=== PATIENT | female | born 1955 | race Hispanic/Latino ===

== ENCOUNTER → 2019-04-14 | Outpatient (CLI) | payer OTHER | END | disposition home or self-care (01) | LOC: RAH 07:51 | PROVIDERS: ATTEND Family Medicine | DX: Z12.31 Encounter for screening mammogram for malignant neoplasm of breast (principal) | CPT/HCPCS: 77067 ==

== ENCOUNTER → 2020-09-19 | Outpatient (CLI) | payer OTHER | END | disposition home or self-care (01) | LOC: RAH 14:53 | PROVIDERS: ATTEND Emergency Medicine | DX: Z12.31 Encounter for screening mammogram for malignant neoplasm of breast (principal) | CPT/HCPCS: 77067 ==

== ENCOUNTER → 2021-04-23 | Outpatient (CLI) | payer OTHER | END | disposition home or self-care (01) | LOC: OIH 09:53 | PROVIDERS: ATTEND Internal Medicine Cardiovascular Disease | DX: Z13.6 Encounter for screening for cardiovascular disorders (principal) | CPT/HCPCS: 75571 ==

== ENCOUNTER → 2022-10-31 | Outpatient (CLI) | payer OTHER | END | disposition home or self-care (01) | LOC: SHCH 07:48 | PROVIDERS: ATTEND Internal Medicine Cardiovascular Disease | DX: I71.40 Abdominal aortic aneurysm, without rupture, unspecified (principal) | CPT/HCPCS: 93978 ==

== ENCOUNTER → 2023-12-06 | Outpatient (CLI) | payer OTHER | END | disposition home or self-care (01) | LOC: RAH 09:21 | PROVIDERS: ATTEND Physician Assistant Medical | DX: Z12.31 Encounter for screening mammogram for malignant neoplasm of breast (principal) | CPT/HCPCS: 77067 ==

== ENCOUNTER → 2024-12-08 | Outpatient (CLI) | payer OTHER ==
--- NOTE | 2024-12-08 11:13 | HMCIMG ---
SCREENING MAMMOGRAM REASON: Annual Exam COMPARISON: 12/06/2023 TECHNIQUE: CC and MLO views of the bilateral breasts were performed.CAD was performed as well. FINDINGS: Parenchymal density: The breasts are heterogeneously dense, which may obscure small masses. There are no focal mass lesions. There are no pathologic appearing calcifications. There is no evidence of architectural distortion or skin thickening. IMPRESSION: Normal screening mammogram The patient was entered into a reminder system with a target due date for their next mammogram. BI-RADS CATEGORY 1: NEGATIVE Recommend monthly self breast exam as well as annual clinical examination. A negative x-ray should not delay biopsy if a dominant or clinically suspicious mass is present, since 8-10% of cancers are not identified by mammography. Dense breasts particularly, may obscure an underlying neoplasm. Some of these may be detected clinically and therefore, clinical examination is an essential part of breast evaluation.
== END | disposition home or self-care (01) ==
LOC: RAH 09:26
PROVIDERS: ATTEND Physician Assistant Medical
DX: Z12.31 Encounter for screening mammogram for malignant neoplasm of breast (principal); R92.333 Mammographic heterogeneous density, bilateral breasts
CPT/HCPCS: 77067

== ENCOUNTER 2025-03-07 09:44 | Observation (INO) | payer OTHER ==
[~2025-03-07] VITALS: Ht 162.6 cm; Wt 60.3 kg
[2025-03-07 11:10] LABS: BASOPHILS # (AUTO) 0.03 K/uL (0.00-0.20); BASOPHILS % (AUTO) 0.4 % (0.0-5.0); EOSINOPHILS # (AUTO) 0.01 K/uL (0.00-0.70); EOSINOPHILS % (AUTO) 0.1 % (0.0-8.0); IMMATURE GRANULOCYTE ABSOLUTE 0.02 K/uL (0-1); LYMPHOCYTES # (AUTO) 1.6 K/uL (1.0-4.8); LYMPHOCYTES % (AUTO) 19.4 % (21.0-51.0); MEAN CORPUSCULAR HEMOGLOBIN 30.9 pg (27.0-33.0); MEAN CORPUSCULAR HGB CONC 33.3 g/dL (32.0-36.0); MEAN CORPUSCULAR VOLUME 92.7 fL (79-99); MONOCYTES # (AUTO) 0.6 K/uL (0.1-1.0); MONOCYTES % (AUTO) 7.7 % (3.0-13.0); NEUTROPHILS # (AUTO) 5.8 K/uL (1.8-7.7); NEUTROPHILS % (AUTO) 72.2 % (40.0-77.0); PLATELET COUNT (AUTO) 336 K/uL (130-400); RED BLOOD CELL COUNT(AUTO) 4.53 MIL/uL (4.00-5.50); RED CELL DISTRIBUTION WIDTH 12.8 % (11.0-15.5)
[2025-03-07 11:29] LABS: CREATININE 0.7 mg/dL (0.5-1.0); MAGNESIUM 2.1 mg/dL (1.80-2.40); POTASSIUM 3.6 mmol/L (3.5-5.1)
[2025-03-07 11:43] LABS: B-TYPE NATRIURETIC PEPTIDE 17 pg/mL (0-100)
--- NOTE | 2025-03-07 11:52 | HMCIMG ---
PORTABLE CHEST RADIOGRAPH INDICATION: palpitations COMPARISON: None FINDINGS: operations associate leads overlie the field of view. Heart size is normal. Mild calcific plaque is present along the aortic arch sauceda. The pulmonary vascularity and aurelio appear normal. No abnormal pulmonary parenchymal opacity or consolidation identified. No significant pleural effusion noted. No pneumothorax detected. IMPRESSION: No radiographic evidence for any acute cardiopulmonary process.
[2025-03-07] MEDS: 0.9%NACL 1000ML 1,000 ML IV ONE (12:14)
--- NOTE | 2025-03-07 13:44 | HP ---
[facility] HISTORY AND PHYSICAL Date of Service: Mar 07, 2025 Time of Service: 13:35 HISTORY OF PRESENT ILLNESS: [ ] Admission date 03/07/2025 PCP: Horacio Lopez CC: Palpitation This is a 70-year-old female that presents in ED with chief complaints of palpitations. Onset for five days. She reports going out and having some drinks on Wednesday and on Wednesday she developed loose stools and palpitations come and go. She believes she had food poisoning given to other friends had similar symptoms. Diarrhea has a decided. She does have a history of GERD is on Protonix at home. Patient reports seen cuprous chloride helper's Dr. Blount last visit was a year ago. She denies chest pain, shortness a breath, or dizziness or lower extremity edema. She will be admitted for further cardiac workup given to elevated troponin 60 REVIEW OF SYSTEMS A14 point ROS was obtained all relevant positives were documented otherwise ROS negative PAST MEDICAL HISTORY: [ ] GERD, hypertension, hyperlipidemia hypothyroidism PAST SURGICAL HISTORY: [ ] Nasal surgery left wrist surgery PAST SOCIAL HISTORY: [ ] Cocktail drinks 3-5 oz of gin daily basis Illicit drugs marijuana cakes daily FAMILY HISTORY: [ ] Noncontributory Coded Allergies: Penicillins (Unverified Allergy, Unknown, 03/07/25) PHYSICAL EXAM GENERAL APPEARANCE: The patient is awake, alert, and oriented, in no acute cardiopulmonary distress. NEUROLOGICAL: Cranial nerves II-XII grossly intact. Motor is 5/5 in bilateral upper and lower extremities proximal to distal. No sensory deficits. HEENT: Face is symmetric. Pupils are equal and reactive. Extraocular movements are intact. NECK: Supple. No JVD. No thyromegaly. No submental, submandibular, pre- /postauricular, occipital or supraclavicular lymphadenopathy. CHEST: Normal chest expansion. No Telemetry. LUNGS: Absence of any rales, rhonchi or any wheezing. CARDIOVASCULAR: Regular. S1 and S2 normal. No appreciable rubs, murmurs or gallops. ABDOMEN: Soft, nontender, and nondistended. There is no rebound, voluntary guarding, or rigidity. : Deferred. No Clark. EXTREMITIES: Non-edematous and not cyanotic. No clubbing. Good capillary refill. SKIN: No skin breakdown. Vital Sign (Last 24 Hours) 03/07/25 10:50 Temp 99.1 Pulse 65 Resp 20 B/P (MAP) 155/88 Pulse Ox 99 O2 Delivery Room Air* O2 Flow Rate 0 FiO2 21 LABS: Laboratory: Test 03/07/25 11:03 Range/Units White Blood Count 8.0 4.8-10.8 K/uL Red Blood Count 4.53 4.00-5.50 MIL/uL Hemoglobin 14.0 12.0-16.0 g/dL Hematocrit 42.0 36-48 % Mean Corpuscular Volume 92.7 79-99 fL Mean Corpuscular Hemoglobin 30.9 27.0-33.0 pg Mean Corpuscular Hemoglobin Concent 33.3 32.0-36.0 g/dL Red Cell Distribution Width 12.8 11.0-15.5 % Platelet Count 336 130-400 K/uL Mean Platelet Volume 9.4 7.5-10.5 fL Immature Granulocyte % (Auto) 0.2 0-1 % Neutrophils (%) (Auto) 72.2 40.0-77.0 % Lymphocytes (%) (Auto) 19.4 L 21.0-51.0 % Monocytes (%) (Auto) 7.7 3.0-13.0 % Eosinophils (%) (Auto) 0.1 0.0-8.0 % Basophils (%) (Auto) 0.4 0.0-5.0 % Neutrophils # (Auto) 5.8 1.8-7.7 K/uL Lymphocytes # (Auto) 1.6 1.0-4.8 K/uL Monocytes # (Auto) 0.6 0.1-1.0 K/uL Eosinophils # (Auto) 0.01 0.00-0.70 K/uL Basophils # (Auto) 0.03 0.00-0.20 K/uL Absolute Immature Granulocyte (auto 0.02 0-1 K/uL Nucleated Red Blood Cells 0.0 0.0-0.19 % Sodium Level 139 136-145 mmol/L Potassium Level 3.6 3.5-5.1 mmol/L Chloride Level 101 101-111 mmol/L Carbon Dioxide Level 29 21-32 mmol/L Blood Urea Nitrogen 8 7-18 mg/dL Creatinine 0.7 0.5-1.0 mg/dL Glomerular Filtration Rate Calc 94 >90 mL/min Random Glucose 93 70-105 mg/dL Total Calcium 9.8 8.5-10.1 mg/dL Magnesium Level 2.10 1.80-2.40 mg/dL Total Creatine Kinase 186 21-232 U/L Troponin I High Sensitivity 60 *H 4-50 ng/L B-Type Natriuretic Peptide 17 0-100 pg/mL DIAGNOSTICS / RADIOLOGY: [ ] ASSESSMENT: Atypical chest pain with palpitations POA Elevated troponin POA Binge alcohol drinking POA Uncontrolled hypertension POA PLAN: [ ] Admit: Medical-surgical with tele condition: Guarded Status: Full code IVF: Banana bag75 mL/hour Consultants cuprous chloride helper's CINC PROTOCOL: thiamine HCL daily x3 doses, Folic acid 1 mg po dialy fall precaution [id number] mg p.o. daily Lipid panel TSH Test: Echo to evaluate LV function Labs cbc, cmp, mag+ in a.m. Replace electrolytes as needed as per protocol to keep potassium above 4.0 magnesium 2.0. Home medications resumed: statin , asa, Norvasc 2.5 mg po daily, levothyroxin 112 mcg every am PRN: MEDICATIONS Tylenol 650 mg po every 4 hrs for fever zofran 4 mg IV every 6 hrs for n/v Hydralazine 5 mg IV every 4 hrs systolic pressure > 160 bowel regiment: lactulose 20 gm PO BID PRN constipation Counseling provided community resources provided. ETOH use cessation and illicit use Supportive measures: DVT ppx, GI ppx all questions answered time spent: > 35 min Supervising MD: Dr. Nguyen c/d This document was generated in part using voice recognition software, occasional wrong word or sound alike substitutions may have occurred due to the inherent limitations of voice recognition software. Read the chart carefully and r ecognize using context, where the substitutions have occurred. Although every effort was made to edit the content, senior investigator and typing errors may occur ATTESTATION BY PHYSICIAN I have seen and examined the patient. I reviewed the documentation, medical decision making, and treatment plan as noted by the mid-level provider above. I agree with the findings and plan of care. SANTIAGO NGUYEN MD ATTESTATION BY PHYSICIAN I have seen and examined the patient. I reviewed the documentation, medical decision making, and treatment plan as noted by the mid-level provider above. I agree with the findings and plan of care. SANTIAGO NGUYEN MD, ELIZABETH NP Mar 07, 2025 13:44
--- NOTE | 2025-03-07 13:47 | ERN ---
General Chief Complaint: Palpitations Stated Complaint: CLAMY HANDS, ELEVATED HEART RATE Time Seen by MD: 10:03 Time Seen by Midlevel: 10:03 Source: patient History of Present Illness Initial Comments The patient is a 70-year-old female with a past medical history of hypertension, hyperlipidemia, and GERD presenting to the emergency department with multiple complaints. She reports having palpitations and clammy hands for the last couple of days. She states her symptoms started after a night of drinking. Patient is followed by [facility] attendant Dr. Blount Allergies: Coded Allergies: Penicillins (Unverified Allergy, Unknown, 03/07/25) Home Meds Reported Medications Rosuvastatin Calcium (Rosuvastatin Calcium) 10 Mg Tablet, 2 TAB PO HS for 30 Days, #30 TAB 0 Refills 03/07/25 Pantoprazole Sodium (Pantoprazole Sodium) 40 Mg Tablet.dr, 1 TAB PO DAILY for 30 Days, #30 TAB 0 Refills 03/07/25 Aspirin (Aspirin) 81 Mg Tab.chew, 1 TAB PO DAILY for 30 Days, #30 TAB 0 Refills 03/07/25 Levothyroxine Sodium (Levothyroxine) 112 Mcg Capsule, 1 CAP PO DAILY for 30 Days, #30 CAP 0 Refills 03/07/25 Amlodipine Besylate (Amlodipine Besylate) 2.5 Mg Tablet, 1 TAB PO DAILY for 30 Days, #30 TAB 0 Refills 03/07/25 Past Medical History Past Medical History: GERD, High Cholesterol, Hypertension Past Surgical History: Other ROS Dictation CONSTITUTIONAL: Negative except for HPI HEAD/FACE: Negative except for HPI EENT: Negative except for HPI RESPIRATORY: Negative except for HPI GASTROINTESTINAL/ABDOMINAL: Negative except for HPI GENITOURINARY: Negative except for HPI MUSCULOSKELETAL: Negative except for HPI INTEGUMENTARY: Negative except for HPI NEUROLOGICAL/PSYCH: Negative except for HPI HEMATOLOGIC/LYMPHATIC: Negative except for HPI All Systems Negative, Except as noted above. 13 point review of systems assessed and all negative except for above. Physical Exam Physical Exam Dictation Vital Signs reviewed General Appearance: Alert, oriented x 3, no acute distress, well developed, nourished. Head and Face: non-traumatic. Eyes: PERRL, pink conjunctivas, eyelid no trauma, anterior chamber with arcus senilis. Ears: Pinnas intact and no signs of trauma or erythema ear canals clear and no discharge TM no erythema Nose: No discharge, no bleeding. Oropharynx: Mouth normal, tongue pink, pharynx clear,no erythema, tonsils no exudates, no abscesses noted, mucous membrane moist Neck: Supple, non-tender, no thyromegaly, no masses, no JVD, no bruits Breast:Deferred Chest:No tenderness, no crepitus, no paradoxical movement, no retractions Lungs:Clear, well-ventilated, symmetric, no rales, no wheezing, no rhonchi, no stridor, good breath sounds bilaterally Heart: Regular rate, regular rhythm, no murmur, no gallops Vascular: no peripheral edema, Abdomen: Soft, positive bowel sounds, nondistended, no guarding, nontender, no rebound, no masses no hepatomegaly, no splenomegaly, no Roy's sign, no hernias. Rectal: Deferred Genital: Deferred Neurological: Normal speech, motor function intact, sensory function intact Musculoskeletal: Neck nontender, full range of motion, back nontender, full range of motion, Extremities: nontender, full range of motion Skin: Color pink, dry, no turgor, no rash, no lacerations, no abrasions, no contusions. Lymphatic: Deferred Results Laboratory and Microbiology Lab and Micro Result Laboratory Tests Test 03/07/25 11:03 White Blood Count 8.0 K/uL (4.8-10.8) Red Blood Count 4.53 MIL/uL (4.00-5.50) Hemoglobin 14.0 g/dL (12.0-16.0) Hematocrit 42.0 % (36-48) Mean Corpuscular Volume 92.7 fL (79-99) Mean Corpuscular Hemoglobin 30.9 pg (27.0-33.0) Mean Corpuscular Hemoglobin Concent 33.3 g/dL (32.0-36.0) Red Cell Distribution Width 12.8 % (11.0-15.5) Platelet Count 336 K/uL (130-400) Mean Platelet Volume 9.4 fL (7.5-10.5) Immature Granulocyte % (Auto) 0.2 % (0-1) Neutrophils (%) (Auto) 72.2 % (40.0-77.0) Lymphocytes (%) (Auto) 19.4 % (21.0-51.0) L Monocytes (%) (Auto) 7.7 % (3.0-13.0) Eosinophils (%) (Auto) 0.1 % (0.0-8.0) Basophils (%) (Auto) 0.4 % (0.0-5.0) Neutrophils # (Auto) 5.8 K/uL (1.8-7.7) Lymphocytes # (Auto) 1.6 K/uL (1.0-4.8) Monocytes # (Auto) 0.6 K/uL (0.1-1.0) Eosinophils # (Auto) 0.01 K/uL (0.00-0.70) Basophils # (Auto) 0.03 K/uL (0.00-0.20) Absolute Immature Granulocyte (auto 0.02 K/uL (0-1) Nucleated Red Blood Cells 0.0 % (0.0-0.19) Sodium Level 139 mmol/L (136-145) Potassium Level 3.6 mmol/L (3.5-5.1) Chloride Level 101 mmol/L (101-111) Carbon Dioxide Level 29 mmol/L (21-32) Blood Urea Nitrogen 8 mg/dL (7-18) Creatinine 0.7 mg/dL (0.5-1.0) Glomerular Filtration Rate Calc 94 mL/min (>90) Random Glucose 93 mg/dL (70-105) Total Calcium 9.8 mg/dL (8.5-10.1) Magnesium Level 2.10 mg/dL (1.80-2.40) Total Creatine Kinase 186 U/L (21-232) Troponin I High Sensitivity 60 ng/L (4-50) *H B-Type Natriuretic Peptide 17 pg/mL (0-100) Labs Reviewed?: Yes MDM MDM: Differential diagnosis: Acute coronary syndrome, electrolyte abnormality, dehydration Rationale: Tests considered and ordered secondary to shared decision making include: Previous outside records reviewed: Old ER visits. Risk of complication and/or morbidity or mortality of patient management: None Medications-Per medication reconciliation Need for hospitalization: Patient does meet criteria for hospitalization. Need for emergency major/minor surgery: No There are no social concerns with this patient. Prescription drug management Prescriptions will include symptomatic care Patient's prior external medical records from other ER visits were reviewed by me as indicated. Prior testing and results from previous visits were reviewed. Prior tests were taken into account with medical decision making and resource utilization, independent historian/historians were used to obtain complete medical history. I independently interpreted the test that were performed, results were reviewed by me and considered findings on radiology if ordered. Medical management and examination interpretation discussions were had by me with other qualified healthcare professionals as indicated for the patient's care. ED Course Orders Procedure Category Date Status Time 12 Lead Ekg Tracing- EKG 03/07/25 Logged Technical 10:33 Cbc With Differential LAB 03/07/25 Complete 10:50 Basic Metabolic Panel LAB 03/07/25 Complete 10:50 B-Type Natriuretic LAB 03/07/25 Complete Peptide 10:50 Creatine Kinase, Total LAB 03/07/25 Complete 10:50 Magnesium LAB 03/07/25 Complete 10:50 Urinalysis Profile LAB 03/07/25 Complete 10:50 Troponin I High LAB 03/07/25 Complete Sensitivity 10:50 Chest 1vw RAD 03/07/25 Resulted 11:19 0.9%Nacl 1000ml (Ns PHA 03/07/25 Complete 1000ml) 12:00 Current Medications Medications (Trade) Dose Ordered Sig/Dayron Route PRN Reason Start Time Stop Time Status Last Admin Dose Admin Sodium Chloride 1,000 ml @ 0 mls/hr ONCE ONCE IV 03/07/25 12:00 03/07/25 12:01 DC 03/07/25 12:14 Vital Signs Date Time Temp Pulse Resp B/P (MAP) Pulse Ox O2 Delivery O2 Flow Rate FiO2 03/07/25 12:00 99.1 74 18 154/84 99 Room Air* 0 21 03/07/25 10:50 99.1 65 20 155/88 99 Room Air* 0 21 03/07/25 10:28 99.1 65 20 155/88 DX & DISP Disposition: Inpatient Decision to Admit Date: Mar 07, 2025 Decision to Admit Time: 13:46 Departure Impression: Primary Impression: Elevated troponin Additional Impression: Palpitations Condition: Stable Referrals: LOTUS BARNES (PCP) I have reviewed the case, and I agree with, Diagnosis and Plan I performed the substantive portion of the visit. I have reviewed and personally made and approve the management plan that is documented in the note by myself or the AMBIKA. I acknowledge for responsibility for the patient's management plan. QUINN COE Mar 07, 2025 13:47 MARY NAVARRO MD Mar 07, 2025 18:51
[2025-03-07] MEDS ORDERED: 0.9%NACL 1000ML 1,000 ML IV SCH (14:00)
[2025-03-07] MEDS ORDERED: hydrALAZine 20MG/ML VIAL IV PRN (14:00)
[2025-03-07] MEDS ORDERED: acetaMINOPHEN 325 MG TAB PO PRN (14:00)
[2025-03-07] MEDS ORDERED: PoTASSium chl 10% ELIXIR 20MEQ 20 MEQ/15 ML UDCUP PO PRN (14:00)
[2025-03-07] MEDS ORDERED: PoTASSium chloRIDE 20MEQ/100ML 100 ML IV PRN (14:00)
[2025-03-07] MEDS ORDERED: MAGNESIUM 2GM PREMIX 50ML 50 ML IV PRN (14:00)
[2025-03-07] MEDS ORDERED: ondanSETRON 4MG INJ IVP PRN (14:00)
[2025-03-07] MEDS ORDERED: LACTULOSE 20 GM/30 ML UDCUP PO PRN (14:00)
[2025-03-07] MEDS ORDERED: PHARMACY COMMUNICATION MISC PRN (15:00)
[2025-03-07] MEDS ORDERED: chlordiazePOXIDE HCL 25 MG CAP PO PRN (15:00)
[2025-03-07] MEDS ORDERED: LORazepam 2 MG/ML 1 ML VIAL IVP PRN (15:00)
[2025-03-07] MEDS: FAMOTIDINE 20MG TAB PO ONE (15:19)
[2025-03-07] MEDS: ASPIRIN 81MG CHEW TAB PO ONE (15:19)
[2025-03-07] MEDS ORDERED: AMLO2.5T4 PO (15:25)
[2025-03-07] MEDS ORDERED: LEVO112C5 PO (15:25)
[2025-03-07] MEDS ORDERED: PANT40TA54 PO (15:26)
[2025-03-07] MEDS ORDERED: ASPI-1197 PO (15:26)
[2025-03-07] MEDS ORDERED: ROSU10TA72 PO (15:28)
[2025-03-07] MEDS ORDERED: diazePAM 5 MG/ML 2 ML SYG IVP PRN (15:30)
--- NOTE | 2025-03-07 15:56 | NUR ---
MEDICATIONS RECONCILED
[2025-03-07 16:13] LABS: APPEARANCE,URINE CLEAR (CLEAR); BILIRUBIN,URINE NEGATIVE (NEGATIVE); COLOR,URINE COLORLESS (YELLOW); GLUCOSE, URINE (UA) NEGATIVE (NEGATIVE); KETONES,URINE NEGATIVE (NEGATIVE); LEUKOCYTE ESTERASE ,URINE NEGATIVE Leu/uL (NEGATIVE); NITRATE,URINE NEGATIVE (NEGATIVE); OCCULT BLOOD,URINE NEGATIVE (NEGATIVE); PH,URINE 6.5 (5.0-8.0); PROTEIN,URINE NEGATIVE (NEGATIVE); UROBILINOGEN,URINE 0.2 mg/dL (0.2-1.0)
--- NOTE | 2025-03-07 16:13 | NUR ---
REPORT GIVEN TO MARISSA
[2025-03-07 16:24] LABS: ADD UA MICROSCOPIC YES
[2025-03-07 16:25] LABS: SQUAMOUS EPITHELIAL CELL,UR RARE /HPF (0-2)
--- NOTE | 2025-03-07 17:00 | NUR ---
Admitted to unit Pt was admitted to the unit by ED. Pt was found sitting on the bed A&Ox4. Pt verbalizes no distress. PEERLA, oral mucosa moist & pink. IV site patent & asymptomatic SL. 20 G RAC. LCTA; on all lobes. No murmurs noted. Cap refill <3 on finger & toes. Pulses BUE & BLE strong & palpable. Abdomen flat & nontender nondistended. Skin normal for ethnicity LBM 4/16. Hyperactive bowel sounds. pt is able to ambulate to the bathroom at [facility]. Call light education was provided. Bed low & locked. No s/s of distress.
[2025-03-07 18:34] VITALS: O2SAT 97
[2025-03-07 20:01] VITALS: BP 155/77; PULSE 59; RESP 19; TEMP 98.1
[2025-03-07 21:00] VITALS: O2SAT 97
[2025-03-07] MEDS ORDERED: atorVAStatin 20 MG TABLET PO SCH (21:00)
[2025-03-07] MEDS: FAMOTIDINE 20MG TAB PO SCH (21:00)
[2025-03-07] MEDS: M.V.I. IV [ADULT] 10 ML, FOLic ACID 5 MG/ML VIAL 1 MG, THIAMINE HCL 100 MG in 0.9%NACL ... IV SCH (21:19)
[2025-03-07 23:18] VITALS: BP 121/78; PULSE 61; RESP 18; TEMP 97.9
[2025-03-08 03:22] VITALS: BP 109/89; PULSE 51; RESP 18; TEMP 99
[2025-03-08 04:07] LABS: BASOPHILS # (AUTO) 0.03 K/uL (0.00-0.20); BASOPHILS % (AUTO) 0.5 % (0.0-5.0); EOSINOPHILS # (AUTO) 0.04 K/uL (0.00-0.70); EOSINOPHILS % (AUTO) 0.7 % (0.0-8.0); HEMATOCRIT 36.1 % (36-48); IMMATURE GRANULOCYTE ABSOLUTE 0.01 K/uL (0-1); LYMPHOCYTES # (AUTO) 1.8 K/uL (1.0-4.8); LYMPHOCYTES % (AUTO) 30.5 % (21.0-51.0); MEAN CORPUSCULAR HEMOGLOBIN 30.7 pg (27.0-33.0); MEAN CORPUSCULAR HGB CONC 33.2 g/dL (32.0-36.0); MEAN CORPUSCULAR VOLUME 92.3 fL (79-99); MONOCYTES # (AUTO) 0.6 K/uL (0.1-1.0); MONOCYTES % (AUTO) 9.5 % (3.0-13.0); NEUTROPHILS # (AUTO) 3.5 K/uL (1.8-7.7); NEUTROPHILS % (AUTO) 58.6 % (40.0-77.0); PLATELET COUNT (AUTO) 255 K/uL (130-400); RED BLOOD CELL COUNT(AUTO) 3.91 MIL/uL (4.00-5.50); RED CELL DISTRIBUTION WIDTH 12.9 % (11.0-15.5)
[2025-03-08 05:00] LABS: ALBUMIN 3.7 g/dL (3.5-5.0); BILIRUBIN,TOTAL 0.7 mg/dL (0.2-1.0); CREATININE 0.7 mg/dL (0.5-1.0); POTASSIUM 3.8 mmol/L (3.5-5.1); THYROID STIMULATING HORMONE 2.09 uIU/mL (0.36-3.74)
[2025-03-08] MEDS: levoTHYROxine 112 MCG TABLET PO SCH (06:48)
--- NOTE | 2025-03-08 06:51 | EKG ---
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
[2025-03-08 07:38] VITALS: BP 142/79; PULSE 56; RESP 16; TEMP 98.8
[2025-03-08 09:00] VITALS: O2SAT 98
[2025-03-08] MEDS: ASPIRIN 81MG CHEW TAB PO SCH (09:00)
[2025-03-08] MEDS: amLODIPine 2.5 MG TAB PO SCH (09:22)
[2025-03-08] MEDS: atorVAStatin 20 MG TABLET PO SCH (09:25)
[2025-03-08] MEDS: FOLic ACID 1 MG TABLET PO SCH (09:25)
[2025-03-08] MEDS: THIAMINE HCL 100 MG/ML 2ML VIAL IM SCH (09:26)
[2025-03-08] MEDS: PoTASSium chloRIDE 20MEQ ER 20 MEQ ERTAB PO PRN (09:26)
--- NOTE | 2025-03-08 11:23 | PN ---
[facility] PROGRESS NOTE Date of Service: Mar 08, 2025 Time of Service: 11:23 SUBJECTIVE: [ ] Admission date 03/07/2025 PCP: Horacio Lopez CC: Palpitation This is a 70-year-old female that presents in ED with chief complaints of palpitations. Onset for five days. She reports going out and having some drinks on Wednesday and on Wednesday she developed loose stools and palpitations come and go. She believes she had food poisoning given to other friends had similar symptoms. Diarrhea has a decided. She does have a history of GERD is on Protonix at home. Patient reports seen [facility] [employer] consultant's Dr. Blount last visit was a year ago. She denies chest pain, shortness a breath, or dizziness or lower extremity edema. She will be admitted for further cardiac workup given to elevated troponin 60 Patient was seen earlier patient is having her lunch denies any chest pain events overnight. Waiting for [employer] fusion consultant's input. Echo was done we will follow-up results REVIEW OF SYSTEMS A14 point ROS was obtained all relevant positives were documented otherwise ROS negative PHYSICAL EXAM GENERAL APPEARANCE: The patient is awake, alert, and oriented, in no acute cardiopulmonary distress. NEUROLOGICAL: Cranial nerves II-XII grossly intact. Motor is 5/5 in bilateral upper and lower extremities proximal to distal. No sensory deficits. HEENT: Face is symmetric. Pupils are equal and reactive. Extraocular movements are intact. NECK: Supple. No JVD. No thyromegaly. No submental, submandibular, pre- /postauricular, occipital or supraclavicular lymphadenopathy. CHEST: Normal chest expansion. No Telemetry. LUNGS: Absence of any rales, rhonchi or any wheezing. CARDIOVASCULAR: Regular. S1 and S2 normal. No appreciable rubs, murmurs or gallops. ABDOMEN: Soft, nontender, and nondistended. There is no rebound, voluntary guarding, or rigidity. : Deferred. No Clark. EXTREMITIES: Non-edematous and not cyanotic. No clubbing. Good capillary refill. SKIN: No skin breakdown. Vital Signs (last 8hr) Date Time Temp Pulse Resp B/P (MAP) Pulse Ox O2 Delivery O2 Flow Rate FiO2 03/08/25 07:38 98.8 56 16 142/79 98 Room Air LABS: Laboratory: Test 03/08/25 03:45 03/08/25 00:13 03/07/25 15:55 03/07/25 11:03 Range/Units White Blood Count 6.0 4.8-10.8 K/uL Red Blood Count 3.91 L 4.00-5.50 MIL/uL Hemoglobin 12.0 12.0-16.0 g/dL Hematocrit 36.1 36-48 % Mean Corpuscular Volume 92.3 79-99 fL Mean Corpuscular Hemoglobin 30.7 27.0-33.0 pg Mean Corpuscular Hemoglobin Concent 33.2 32.0-36.0 g/dL Red Cell Distribution Width 12.9 11.0-15.5 % Platelet Count 255 130-400 K/uL Mean Platelet Volume 9.3 7.5-10.5 fL Immature Granulocyte % (Auto) 0.2 0-1 % Neutrophils (%) (Auto) 58.6 40.0-77.0 % Lymphocytes (%) (Auto) 30.5 21.0-51.0 % Monocytes (%) (Auto) 9.5 3.0-13.0 % Eosinophils (%) (Auto) 0.7 0.0-8.0 % Basophils (%) (Auto) 0.5 0.0-5.0 % Neutrophils # (Auto) 3.5 1.8-7.7 K/uL Lymphocytes # (Auto) 1.8 1.0-4.8 K/uL Monocytes # (Auto) 0.6 0.1-1.0 K/uL Eosinophils # (Auto) 0.04 0.00-0.70 K/uL Basophils # (Auto) 0.03 0.00-0.20 K/uL Absolute Immature Granulocyte (auto 0.01 0-1 K/uL Nucleated Red Blood Cells 0.0 0.0-0.19 % Sodium Level 138 136-145 mmol/L Potassium Level 3.8 3.5-5.1 mmol/L Chloride Level 104 101-111 mmol/L Carbon Dioxide Level 27 21-32 mmol/L Blood Urea Nitrogen 8 7-18 mg/dL Creatinine 0.7 0.5-1.0 mg/dL Glomerular Filtration Rate Calc 94 >90 mL/min Random Glucose 97 70-105 mg/dL Total Calcium 8.4 L 8.5-10.1 mg/dL Magnesium Level 2.00 1.80-2.40 mg/dL Total Bilirubin 0.7 0.2-1.0 mg/dL Aspartate Amino Transf (AST/SGOT) 19 10-37 U/L Alanine Aminotransferase (ALT/SGPT) 22 12-78 U/L Alkaline Phosphatase 67 50-136 U/L Total Protein 7.0 6.0-8.3 g/dL Albumin 3.7 3.5-5.0 g/dL Triglycerides Level 27 L 30-200 mg/dL Cholesterol Level 134 <200 mg/dL LDL Cholesterol 50 0-99 mg/dL HDL Cholesterol 75 35-85 mg/dL Thyroid Stimulating Hormone (TSH) 2.09 0.36-3.74 uIU/mL Troponin I High Sensitivity 60 *H 4-50 ng/L Urine Color COLORLESS YELLOW Urine Appearance CLEAR CLEAR Urine pH 6.5 5.0-8.0 Urine Specific [place] 1.004 1.001-1.031 Urine Protein NEGATIVE NEGATIVE mg/dL Urine Glucose (UA) NEGATIVE NEGATIVE mg/dL Urine Ketones NEGATIVE NEGATIVE mg/dL Urine Occult Blood NEGATIVE NEGATIVE Urine Nitrate NEGATIVE NEGATIVE Urine Bilirubin NEGATIVE NEGATIVE mg/dL Urine Urobilinogen 0.2 0.2-1.0 mg/dL Urine Leukocyte Esterase NEGATIVE NEGATIVE Yudi/uL Urine RBC None 0-1 /HPF Urine WBC 2-5 H 0-1 /HPF Urine Squamous Epithelial Cells RARE 0-2 /HPF Urine Bacteria None None Seen /HPF Total Creatine Kinase 186 21-232 U/L B-Type Natriuretic Peptide 17 0-100 pg/mL Current Medications Medications (Trade) Dose Ordered Sig/Dayron Route PRN Reason Start Time Stop Time Status Last Admin Dose Admin Acetaminophen (TYLenol 325MG TAB) 650 mg Q4H PRN PO TEMPERATURE GREATER THAN 101.5 03/07/25 14:00 04/06/25 13:59 Amlodipine Besylate (NorvASC 2.5MG TAB) 2.5 mg DAILY PO 03/08/25 09:00 04/07/25 08:59 03/08/25 09:22 2.5 MG Aspirin (Aspirin 81mg Chew Tab) 81 mg DAILY PO 03/08/25 09:00 04/07/25 08:59 Atorvastatin Calcium (LIPItor 20MG) 20 mg DAILY PO 03/08/25 09:00 04/06/25 20:59 03/08/25 09:25 20 MG Atorvastatin Calcium (LIPItor 20MG) 20 mg HS PO 03/07/25 21:00 03/07/25 21:18 DC Chlordiazepoxide HCl (LIBrium 25 MG CAP) 25 mg Q2H PRN PO ALCOHOL WITHDRAWAL PROTOCOL 03/07/25 15:00 03/14/25 14:59 Diazepam (VALium 5 MG/ML 2 ML SYG) 10 mg Q4H PRN IVP ALCOHOL WITHDRAWAL 03/07/25 15:30 03/14/25 15:29 Famotidine (Pepcid 20mg Tab) 20 mg BID PO 03/07/25 21:00 04/06/25 20:59 Folic Acid (FOLic ACID 1 MG TABLET) 1 mg DAILY PO 03/08/25 09:00 03/10/25 09:01 03/08/25 09:25 1 MG Hydralazine HCl (APRESOLine 20MG INJ) 5 mg Q4H PRN IV ADMINISTER FOR SBP > 160 03/07/25 14:00 04/06/25 13:59 Lactulose (Constulose 20gm/ 30ml Udcup) 20 gm BID PRN PO CONSTIPATION 03/07/25 14:00 04/06/25 13:59 Levothyroxine Sodium (SYNTHroid 112MCG TAB) 112 mcg SYN PO 03/08/25 06:30 04/07/25 06:29 03/08/25 06:48 112 MCG Lorazepam (AtiVAN) 2 mg Q4H PRN IVP ALCOHOL WITHDRAWAL PROTOCOL 03/07/25 15:00 03/07/25 15:05 DC Magnesium Sulfate 50 ml @ 0 mls/hr PROTOCOL PRN IV low mag level 03/07/25 14:00 04/06/25 13:59 Multivitamins/ Minerals 10 ml/ Folic Acid 1 mg/ Thiamine HCl 100 mg/Sodium Chloride 1,010 ml @ 75 mls/hr Q24H IV 03/07/25 21:00 04/06/25 20:59 03/07/25 21:19 75 MLS/HR Ondansetron HCl (zoFRAN 4MG INJ) 4 mg Q6H PRN IVP NAUSEA/VOMITING 03/07/25 14:00 04/06/25 13:59 Pharmacy Profile Note (Pharmacy Communication) 1 each PROTOCOL PRN MISC ETOH Withdrawal Score changes 03/07/25 15:00 03/14/25 14:59 Potassium Chloride 100 ml @ 100 mls/hr AD PRN IV POTASSIUM PROTOCOL 03/07/25 14:00 04/06/25 13:59 Potassium Chloride (K-Dur/Klor-Con 20meq) 20 meq AD PRN PO POTASSIUM PROTOCOL 03/07/25 14:00 04/06/25 13:59 03/08/25 09:26 20 MEQ Potassium Chloride (KCl 10% Elixir 20meq/15ml) 20 meq AD PRN PO POTASSIUM PROTOCOL 03/07/25 14:00 04/06/25 13:59 Sodium Chloride 1,000 ml @ 75 mls/hr [id number] IV 03/07/25 14:00 03/07/25 14:55 DC Thiamine HCl (Vitamin B-1) 100 mg DAILY IM 03/08/25 09:00 03/10/25 09:01 03/08/25 09:26 100 MG DIAGNOSTICS / RADIOLOGY: [ ] ASSESSMENT: rule out ACS Atypical chest pain with palpitations POA Elevated troponin POA Binge alcohol drinking POA Uncontrolled hypertension POA PLAN: [ ] Admit: Medical-surgical with tele condition: Guarded Status: Full code IVF: Banana bag75 mL/hour Consultants [employer] fusion consultant's CIWA PROTOCOL: thiamine HCL dailyFolic acid 1 mg po dialy fall precaution [id number] mg p.o. daily Lipid panel TSH Test: Echo to evaluate LV function down we will follow-up results Labs cbc, cmp, mag+ in a.m. Replace electrolytes as needed as per protocol to keep potassium above 4.0 magnesium 2.0. Home medications resumed: statin , asa, Norvasc 2.5 mg po daily, levothyroxin 112 mcg every am PRN: MEDICATIONS Tylenol 650 mg po every 4 hrs for fever zofran 4 mg IV every 6 hrs for n/v Hydralazine 5 mg IV every 4 hrs systolic pressure > 160 bowel regiment: lactulose 20 gm PO BID PRN constipation Counseling provided community resources provided. ETOH use cessation and illicit use Supportive measures: DVT ppx, GI ppx all questions answered Supervising MD: Dr. Nguyen c/d This document was generated in part using voice recognition software, occasional wrong word or sound alike substitutions may have occurred due to the inherent li mitations of voice recognition software. Read the chart carefully and recognize using context, where the substitutions have occurred. Although every effort was made to edit the content, senior windows systems engineer and typing errors may occur ATTESTATION BY PHYSICIAN I have seen and examined the patient. I reviewed the documentation, medical decision making, and treatment plan as noted by the mid-level provider above. I agree with the findings and plan of care. SANTIAGO NGUYEN MD ATTESTATION BY PHYSICIAN I have seen and examined the patient. I reviewed the documentation, medical decision making, and treatment plan as noted by the mid-level provider above. I agree with the findings and plan of care. SANTIAGO NGUYEN MD, ELIZABETH NP Mar 08, 2025 11:23
[2025-03-08] MEDS ORDERED: COMPOUND IV REFRIGERATED 1 EACH IVSOLN MISC PRN (11:30)
[2025-03-08 11:35] VITALS: BP 109/66; PULSE 58; RESP 17; TEMP 97.7
--- NOTE | 2025-03-08 13:09 | CONS ---
[facility] CARDIOLOGY CONSULTATION REPORT Cardiology consultation note dictated for Moi Bui MD Primary fruit peeler: Aston Blount MD Date Patient Seen: Mar 08, 2025 Requesting Physician: Triston Rangel NP Reason for Consultation: Elevated Ti History of Present Illness: This is a 70-year-old female with a past medical history of hypertension, dyslipidemia, hypothyroidism, TIA in 2013, PUD, bradycardia and atypical chest pain who presented to the ED with complaints of clammy hands and feet, racing heart rate, chills, loose stools and chest discomfort. Cardiology has been consulted for elevated troponin. The patient states on Wednesday she and her friends went out to eat and developed food poisoning on Wednesday. She endorsed three episodes of loose stools in which she took [employer] te for. She also complained of clammy hands and feet with a racing heart rate. She denied having chest pain but admitted to a twinge of discomfort which she stated could likely be her GERD symptoms as she just had food poisoning. Troponin of 60, 58, and 60. EKG demonstrated normal sinus rhythm with a heart rate of 64 bpm with no acute ischemia. Telemetry reported no events, she has been normal sinus rhythm with heart rate in the 60s to 70s. TSH is normal at 2.09. She currently denies chest pain, chest pressure, palpitations, dizziness, shortness of breath, or syncope. The patient is displaying hyperactivity and pacing in her room which she states she is trying to stimulate her bowels. Past Medical History: As per HPI and summarized below Past Surgical History: Nasal surgery Family History: Noncontributory Social History: Refer to chart Habits: The patient admits to daily alcohol and marijuana use but denies tobacco use. Home Meds: Amlodipine 2.5 mg daily Aspirin 81 mg daily Levothyroxine 112 mcg daily Pantoprazole 40 mg daily Rosuvastatin 10 mg nightly Current Meds: Current Medications Medications Dose Ordered Sig/Dayron Start Time Stop Time Status Last Admin Hydralazine HCl 5 mg Q4H PRN 03/07/25 14:00 04/06/25 13:59 Famotidine 20 mg BID 03/07/25 21:00 04/06/25 20:59 Ondansetron HCl 4 mg Q6H PRN 03/07/25 14:00 04/06/25 13:59 Acetaminophen 650 mg Q4H PRN 03/07/25 14:00 04/06/25 13:59 Lactulose 20 gm BID PRN 03/07/25 14:00 04/06/25 13:59 Potassium Chloride 100 ml @ 100 mls/hr AD PRN 03/07/25 14:00 04/06/25 13:59 Potassium Chloride 20 meq AD PRN 03/07/25 14:00 04/06/25 13:59 Potassium Chloride 20 meq AD PRN 03/07/25 14:00 04/06/25 13:59 03/08/25 09:26 Magnesium Sulfate 50 ml @ 0 mls/hr PROTOCOL PRN 03/07/25 14:00 04/06/25 13:59 Aspirin 81 mg DAILY 03/08/25 09:00 04/07/25 08:59 Multivitamins/ Minerals 10 ml/ Folic Acid 1 mg/ Thiamine HCl 100 mg/Sodium Chloride 1,010 ml @ 75 mls/hr Q24H 03/07/25 21:00 04/06/25 20:59 03/07/25 21:19 Chlordiazepoxide HCl 25 mg Q2H PRN 03/07/25 15:00 03/14/25 14:59 Thiamine HCl 100 mg DAILY 03/08/25 09:00 03/10/25 09:01 03/08/25 09:26 Folic Acid 1 mg DAILY 03/08/25 09:00 03/10/25 09:01 03/08/25 09:25 Pharmacy Profile Note 1 each PROTOCOL PRN 03/07/25 15:00 03/14/25 14:59 Amlodipine Besylate 2.5 mg DAILY 03/08/25 09:00 04/07/25 08:59 03/08/25 09:22 Levothyroxine Sodium 112 mcg SYN 03/08/25 06:30 04/07/25 06:29 03/08/25 06:48 Diazepam 10 mg Q4H PRN 03/07/25 15:30 03/14/25 15:29 Atorvastatin Calcium 20 mg DAILY 03/08/25 09:00 04/06/25 20:59 03/08/25 09:25 Review of Systems: CONST: No fever, fatigue, or weight changes. EYES: No recent vision problems. ENT: No congestion, ear pain, or sore throat. C/V: No chest pain, palpitations, or edema. RESP: No cough, congestion, wheezing or shortness of breath. GI: No abdominal pain, nausea, vomiting, constipation, or diarrhea. : No incontinence or dysuria. SKIN: No rash. NEURO: No headache, focal numbness or weakness, dizziness, or seizures. PSYCH: No depression or anxiety. HEME: No abnormal bruising or bleeding. LYMPH: No swollen glands. Physical Examination: GENERAL: No acute distress. HEAD: Normal with no signs of head trauma. EYES: PERRLA, EOMI, conjunctiva and sclera normal. ENT: Hearing grossly intact, normal oropharynx. NECK: Supple without JVD. There is no tenderness, lymphadenopathy, or masses. No thyromegaly. Normal carotid upstrokes without bruits. LUNGS: Clear breath sounds bilaterally. No wheezes, or rhonchi. HEART: Normal rate and rhythm. Normal S1 and S2 without murmurs, gallop or rub. VASC: Peripheral pulses +2 bilaterally. ABD: Bowel sounds normal, soft, nontender, no masses, no organomegaly. No audible bruits. : Not examined LYMPH: No lymphadenopathy noted. EXT: No clubbing, cyanosis or edema. SKIN: No rashes or lesions noted. NEURO: Awake, alert, and oriented x3. No focal sensory or strength deficits noted. Vital Signs (last 8hr) Date Time Temp Pulse Resp B/P (MAP) Pulse Ox O2 Delivery O2 Flow Rate FiO2 03/08/25 11:35 97.7 58 17 109/66 99 Room Air 03/08/25 07:38 98.8 56 16 142/79 98 Room Air Laboratory: Hematology Labs: Test 03/08/25 03:45 Range/Units White Blood Count 6.0 4.8-10.8 K/uL Red Blood Count 3.91 L 4.00-5.50 MIL/uL Hemoglobin 12.0 12.0-16.0 g/dL Hematocrit 36.1 36-48 % Mean Corpuscular Volume 92.3 79-99 fL Mean Corpuscular Hemoglobin 30.7 27.0-33.0 pg Mean Corpuscular Hemoglobin Concent 33.2 32.0-36.0 g/dL Red Cell Distribution Width 12.9 11.0-15.5 % Platelet Count 255 130-400 K/uL Mean Platelet Volume 9.3 7.5-10.5 fL Immature Granulocyte % (Auto) 0.2 0-1 % Neutrophils (%) (Auto) 58.6 40.0-77.0 % Lymphocytes (%) (Auto) 30.5 21.0-51.0 % Monocytes (%) (Auto) 9.5 3.0-13.0 % Eosinophils (%) (Auto) 0.7 0.0-8.0 % Basophils (%) (Auto) 0.5 0.0-5.0 % Neutrophils # (Auto) 3.5 1.8-7.7 K/uL Lymphocytes # (Auto) 1.8 1.0-4.8 K/uL Monocytes # (Auto) 0.6 0.1-1.0 K/uL Eosinophils # (Auto) 0.04 0.00-0.70 K/uL Basophils # (Auto) 0.03 0.00-0.20 K/uL Absolute Immature Granulocyte (auto 0.01 0-1 K/uL Nucleated Red Blood Cells 0.0 0.0-0.19 % Chemistry Labs: Test 03/08/25 03:45 03/08/25 00:13 03/07/25 11:03 Range/Units Sodium Level 138 136-145 mmol/L Potassium Level 3.8 3.5-5.1 mmol/L Chloride Level 104 101-111 mmol/L Carbon Dioxide Level 27 21-32 mmol/L Blood Urea Nitrogen 8 7-18 mg/dL Creatinine 0.7 0.5-1.0 mg/dL Glomerular Filtration Rate Calc 94 >90 mL/min Random Glucose 97 70-105 mg/dL Total Calcium 8.4 L 8.5-10.1 mg/dL Magnesium Level 2.00 1.80-2.40 mg/dL Total Bilirubin 0.7 0.2-1.0 mg/dL Aspartate Amino Transf (AST/SGOT) 19 10-37 U/L Alanine Aminotransferase (ALT/SGPT) 22 12-78 U/L Alkaline Phosphatase 67 50-136 U/L Total Protein 7.0 6.0-8.3 g/dL Albumin 3.7 3.5-5.0 g/dL Triglycerides Level 27 L 30-200 mg/dL Cholesterol Level 134 <200 mg/dL LDL Cholesterol 50 0-99 mg/dL HDL Cholesterol 75 35-85 mg/dL Thyroid Stimulating Hormone (TSH) 2.09 0.36-3.74 uIU/mL Troponin I High Sensitivity 60 *H 4-50 ng/L Total Creatine Kinase 186 21-232 U/L B-Type Natriuretic Peptide 17 0-100 pg/mL Diagnostics / Radiology: Impression and Plan: Elevated Troponin HTN DLD Hypothyroidism TIA in 2013 PUD Bradycardia Atypical chest pain Elevated Troponin Troponin of 60, 58, and 60 EKG demonstrated normal sinus rhythm with a heart rate of 64 bpm with no acute ischemia. No telemetry events, is currently normal sinus rhythm -Echo is normal -Recommend an outpatient coronary CTA I will sign off. She may follow up in one week after discharge with CANDE Angelo Mar 08, 2025 13:09 MOI BUI MD Mar 08, 2025 18:33
--- NOTE | 2025-03-08 13:52 | NUR ---
DCP: home Pt currently lives in a home alone with a dog. Pt denies any insecurities with food, senior care, and/or utilities. Pt does not have any DME or home health services. Pt PCP is Allison Leonard and uses [facility] in [place] for any RX needs. At [place] pt wants to go home and a friend will be coming to pick her up. Addendum: 03/08/25 at 1355 by MIKHAIL COOPER SS Amended: Links added.
--- NOTE | 2025-03-08 15:02 | NUR ---
IV Site Attempted to insert new IV. Pt refused. Wants an update from Dr. Bui to know if shes staying or being d/c.
[2025-03-08 15:53] VITALS: BP 110/68; PULSE 60; RESP 18; TEMP 97.8
--- NOTE | 2025-03-08 17:25 | HMCSR ---
APPROVED REPORT EXAM: Two-dimensional and M-mode echocardiogram with Doppler and color Doppler. INDICATION ICD: R00.2 Palpitations, Elevated troponin 2D Dimensions RVDd3.5 cmLVEF(%)57.7 (>50%)LVED Vol(simp.)94.0 mL IVSd0.7 (0.7-1.1cm)FS(%)30 %LVES Vol(simp.)37.0 mL LVDd5.0 (3.8-5.6cm)LA (2D)3.7 (1.6-4.0cm)LVEF(%, simp.)61 % PWd0.6 (0.7-1.1cm)Ao Root(2D)3.1 (2.0-3.7cm)LA ESV INDEX (BP)42.20 mL/m2 IVSs0.8 cmLVOT diam1.8 (1.8-2.4cm) LVDs3.5 (2.5-4.0cm)IVC diam1.9 cm PWs1.1 cm Deformation Strain Apical 4-21.0 % Apical 2-19.0 % Apical 3-23.0 % Global Strain-21.0 % M-Mode Dimensions EPSS0.6 cm LA (MM)3.8 (1.6-4.0cm) Ao Root(MM)2.8 (2.0-3.7cm) Aortic Valve AoV Vmax1.7 m/Brianna Peak GR11.0 mmHgLVOT Vmax1.3 m/s AoV VTI0.4 mAo Mean GR5.5 mmHgLVOT VTI0.27 m PHIL (VMAX)1.8 cm2AVA (VTI) 1.8 cm2 Mitral Valve MV E Vmax71.9 cm/sDECEL Vrnz105 ms MV A Vmax63.5 cm/sP 1/2 T59 ms E/A ratio1.1MVA (PHT)3.7 cm2 TDI E/E' Qodshe65.0E/E' [id number] Medial E' Peak V6.00 cm/sLateral E' Peak V7.00 cm/s Pulmonary Valve PV Vmax0.9 m/s Tricuspid Valve TR Vmax2.5 m/sRVSP24.8 mmHg TR Peak GR25.7 mmHg Left Ventricle The left ventricle is normal size. GLS -21.0%. There is normal left ventricular wall thickness. LVEF is 60-65%. 3D volume EF 63% Indeterminate diastolic dysfunction. Right Ventricle The right ventricle is normal size. The right ventricular systolic function is normal. Atria The left atrium is moderately dilated. The right atrium is borderline dilated. Aortic Valve The aortic valve is normal in structure. No aortic regurgitation is present. There is no aortic valvu lar stenosis. Mitral Valve The mitral valve is normal in structure. There is no mitral valve regurgitation noted. There is no mi tral valve stenosis. Tricuspid Valve The tricuspid valve is normal in structure. There is mild tricuspid valve regurgitation noted. Pulmonic Valve The pulmonary valve is normal in structure. There is no pulmonic valvular regurgitation. Great Vessels The aortic root is normal in size. The IVC is normal in size and collapses <50% with inspiration. Pericardium There is no pericardial effusion. Other Information Quality : Adequate Conclusion The left ventricle is normal size. LVEF is 60-65%. 3D volume EF 63% Indeterminate diastolic dysfunction. The right ventricle is normal size. The right ventricular systolic function is normal. The left atrium is moderately dilated. The right atrium is borderline dilated. There is mild tricuspid valve regurgitation noted. There is no pericardial effusion.
[2025-03-08] MEDS: LACTULOSE 20 GM/30 ML UDCUP PO ONE (17:31)
--- NOTE | 2025-03-08 18:52 | DS ---
Discharge Summary Hospital Course Summary: Admission date 03/07/2025 PCP: Horacio Lopez CC: Palpitation This is a 70-year-old female that presents in ED with chief complaints of palpitations. Onset for five days. She reports going out and having some drinks on Wednesday and on Wednesday she developed loose stools and palpitations come and go. She believes she had food poisoning given to other friends had similar symptoms. Diarrhea has a decided. She does have a history of GERD is on Protonix at home. Patient reports seen paint supervisor's Dr. Blount last visit was a year ago. She denies chest pain, shortness a breath, or dizziness or lower extremity edema. She will be admitted for further cardiac workup given to elevated troponin 60 during the course: Elevated Troponin Troponin of 60, 58, and 60; EKG demonstrated normal sinus rhythm with a heart rate of 64 bpm with no acute ischemia. No telemetry events, is currently normal sinus rhythm -Echo is normal Cardiology's-Recommend an outpatient coronary CTA follow-up saw heart clinic one-week with Dr. Blount The patient is hemodynamically stable for discharge cleared by paint supervisor's. Procedure(s): REASON: Palpitation elevated troponin ORDERING PHYSICIAN: MICAH BUSH NP PROCEDURE: ECHO [facility] - ECHO 2-D COMPLETE APPROVED REPORT EXAM: Two-dimensional and M-mode echocardiogram with Doppler and color Doppler. INDICATION ICD: R00.2 Palpitations, Elevated troponin 2D Dimensions RVDd 3.5 cm LVEF(%) 57.7 (>50%) LVED Vol(simp.) 94.0 mL IVSd 0.7 (0.7-1.1cm) FS(%) 30 % LVES Vol(simp.) 37.0 mL LVDd 5.0 (3.8-5.6cm) LA (2D) 3.7 (1.6-4.0cm) LVEF(%, simp.) 61 % PWd 0.6 (0.7-1.1cm) Ao Root(2D) 3.1 (2.0-3.7cm) LA ESV INDEX (BP) 42.20 mL/m2 IVSs 0.8 cm LVOT diam 1.8 (1.8-2.4cm) LVDs 3.5 (2.5-4.0cm) IVC diam 1.9 cm PWs 1.1 cm Deformation Strain Apical 4 -21.0 % Apical 2 -19.0 % Apical 3 -23.0 % Global Strain -21.0 % M-Mode Dimensions EPSS 0.6 cm LA (MM) 3.8 (1.6-4.0cm) Ao Root(MM) 2.8 (2.0-3.7cm) Aortic Valve AoV Vmax 1.7 m/s Ao Peak GR 11.0 mmHg LVOT Vmax 1.3 m/s AoV VTI 0.4 m Ao Mean GR 5.5 mmHg LVOT VTI 0.27 m PHIL (VMAX) 1.8 cm2 PHIL (VTI) 1.8 cm2 Mitral Valve MV E Vmax 71.9 cm/s DECEL Time 136 ms MV A Vmax 63.5 cm/s P 1/2 T 59 ms E/A ratio 1.1 MVA (PHT) 3.7 cm2 TDI E/E' Medial 12.0 E/E' Lateral 10.3 Medial E' Peak V 6.00 cm/s Lateral E' Peak V 7.00 cm/s Pulmonary Valve PV Vmax 0.9 m/s Tricuspid Valve TR Vmax 2.5 m/s RVSP 24.8 mmHg TR Peak GR 25.7 mmHg Left Ventricle The left ventricle is normal size. GLS -21.0%. There is normal left ventricular wall thickness. LVEF is 60-65%. 3D volume EF 63% Indeterminate diastolic dysfunction. Right Ventricle The right ventricle is normal size. The right ventricular systolic function is normal. Atria The left atrium is moderately dilated. The right atrium is borderline dilated. Aortic Valve The aortic valve is normal in structure. No aortic regurgitation is present. There is no aortic valvular stenosis. Mitral Valve The mitral valve is normal in structure. There is no mitral valve regurgitation noted. There is no mitral valve stenosis. Tricuspid Valve The tricuspid valve is normal in structure. There is mild tricuspid valve regurgitation noted. Pulmonic Valve The pulmonary valve is normal in structure. There is no pulmonic valvular regurgitation. Great Vessels The aortic root is normal in size. The IVC is normal in size and collapses <50% with inspiration. Pericardium There is no pericardial effusion. Other Information Quality : Adequate Conclusion The left ventricle is normal size. LVEF is 60-65%. 3D volume EF 63% Indeterminate diastolic dysfunction. The right ventricle is normal size. The right ventricular systolic function is normal. The left atrium is moderately dilated. The right atrium is borderline dilated. There is mild tricuspid valve regurgitation noted. There is no pericardial effusion. DICTATED BY: MOI CORNELIUS MD DATE: 03/08/25 1114 REASON: palpitations ORDERING PHYSICIAN: QUINN COE PROCEDURE: CXR1VW - CHEST 1VW PORTABLE CHEST RADIOGRAPH INDICATION: palpitations COMPARISON: None FINDINGS: cardiac monitor technician leads overlie the field of view. Heart size is normal. Mild calcific plaque is present along the aortic arch sauceda. The pulmonary vascularity and aurelio appear normal. No abnormal pulmonary parenchymal opacity or consolidation identified. No significant pleural effusion noted. No pneumothorax detected. IMPRESSION: No radiographic evidence for any acute cardiopulmonary process. Assessment/Plan: discharged dx's: rule out ACS Atypical chest pain with palpitations POA resolved Elevated troponin POA Binge alcohol drinking POA Uncontrolled hypertension POA PLAN: [ ] ADMISSION DATE: 03/07/25 DISCHARGE DATE:03/08/25 DISPOSITION: home CONDITION: stable GYNECOLOGICAL ASSISTANT(S): paint supervisor FOLLOW UP APPOINTMENT(S): [facility] DR Les garcia wk. : outpatient Coronary CTA PROCEDURES: none IMAGING (S) report attached to summary : echo MICROBIOLOGY: report attached to summary; none ACTIVITY: ab jaelyn HOME MEDICATIONS remain the same CHANGES ON HOME MEDICATIONS; none NEW MEDICATIONS aspirin 81 mg po daily TEACHING: Saftey measures: ETOH use, fall precaution, cessation. Emergency instructions: The patient was instructed to present to the nearest Emergency Department or call 911 should their symptoms return or worsen. Home Medications: Active Scripts Aspirin (ASPIRIN 81MG CHEW TAB) 81 Mg Tab.chew, 81 MG PO DAILY for 30 Days, #30 TAB.CHEW Prov:MICAH BUSH [employer] 03/08/25 Reported Medications Rosuvastatin Calcium (Rosuvastatin Calcium) 10 Mg Tablet, 2 TAB PO HS for 30 Days, #30 TAB 0 Refills 03/07/25 Pantoprazole Sodium (Pantoprazole Sodium) 40 Mg Tablet.dr, 1 TAB PO DAILY for 30 Days, #30 TAB 0 Refills 03/07/25 Aspirin (Aspirin) 81 Mg Tab.chew, 1 TAB PO DAILY for 30 Days, #30 TAB 0 Refills 03/07/25 Levothyroxine Sodium (Levothyroxine) 112 Mcg Capsule, 1 CAP PO DAILY for 30 Days, #30 CAP 0 Refills 03/07/25 Amlodipine Besylate (Amlodipine Besylate) 2.5 Mg Tablet, 1 TAB PO DAILY for 30 Days, #30 TAB 0 Refills 03/07/25 New Medications: Aspirin (Aspirin 81MG Chew Tab) 81 Mg Tab.chew 81 MG PO DAILY for 30 Days, #30 TAB.CHEW Continued Medications: Amlodipine Besylate (Amlodipine Besylate) 2.5 Mg Tablet 1 TAB PO DAILY for 30 Days, #30 TAB 0 Refills Aspirin (Aspirin) 81 Mg Tab.chew 1 TAB PO DAILY for 30 Days, #30 TAB 0 Refills Levothyroxine Sodium (Levothyroxine) 112 Mcg Capsule 1 CAP PO DAILY for 30 Days, #30 CAP 0 Refills Pantoprazole Sodium (Pantoprazole Sodium) 40 Mg Tablet.dr 1 TAB PO DAILY for 30 Days, #30 TAB 0 Refills Rosuvastatin Calcium (Rosuvastatin Calcium) 10 Mg Tablet 2 TAB PO HS for 30 Days, #30 TAB 0 Refills Time spent arranging discharge: 31-60 minutes ATTESTATION BY PHYSICIAN I have seen and examined the patient. I reviewed the documentation, medical decision making, and treatment plan as noted by the mid-level provider above. I agree with the findings and plan of care. SANTIAGO MURPHY MD, ELIZABETH NP Mar 08, 2025 18:52
[2025-03-08] MEDS ORDERED: ASPI-1005 PO (18:55)
--- NOTE | 2025-03-08 20:05 | NUR ---
PATIENT GIVEN DISCHARGE INSTRUCTIONS BY JOSE CARLOS ARELLANO AND CURRENT DOCUMENTER. NO IV TO REMOVE, TELE MONITOR REMOVED. PATIENT AWAITING FAMILY TO TAKE HOME AT THIS TIME. FAMILY EN ROUTE TO DRIVE PATIENT HOME PER PATIENT.
--- NOTE | 2025-03-08 20:23 | NUR ---
PATIENT DISCHARGED TO FAMILY MEMBER AT THIS TIME, [facility] PCT TAKING PATIENT TO FAMILY IN WHEELCHAIR.
== END 2025-03-08 20:25 | disposition home or self-care (01) ==
LOC: EDH 09:44 → EDHIP 13:36 → INTOOBSV 13:36 → 4BH 16:50
PROVIDERS: ADMIT Internal Medicine; ATTEND Internal Medicine
DX: I10 Essential (primary) hypertension (principal); R79.89 Other specified abnormal findings of blood chemistry; R07.89 Other chest pain; R00.2 Palpitations; K21.9 Gastro-esophageal reflux disease without esophagitis; E78.5 Hyperlipidemia, unspecified; E03.9 Hypothyroidism, unspecified; F12.90 Cannabis use, unspecified, uncomplicated; F10.10 Alcohol abuse, uncomplicated; Z79.82 Long term (current) use of aspirin; Z79.899 Other long term (current) drug therapy; Z86.73 Personal history of transient ischemic attack (TIA), and cerebral infarction without residual deficits; Z87.11 Personal history of peptic ulcer disease; Y90.9 Presence of alcohol in blood, level not specified
CPT/HCPCS: 96361; 96365; 96366 ×2; 99285; 82550; 83735 ×2; 84484 ×3; 80048; 83880; 85025 ×2; 81001; 36415 ×2; 71045; 93005; 96372; 84443; 80061; 80053; 93306; 93356; 76376; J7030 ×2; J3411 ×2; J3490; G0378 ×4; 96360